=== PATIENT | female | born 1950 | race Caucasian/White ===

== ENCOUNTER → 2016-05-30 | Outpatient (CLI) | payer MEDICARE, OTHER ==
[2015-10-18 18:49] VITALS: BP 148/70
[~2016-05-30] MED LIST: HYDR-971 PO; HYDR12.58 PO; IRBE300T3 PO; LEVO500T38 PO; LOVA20TA2 PO; METF500T3 PO; METR500T PO; OXYC-323 PO
--- NOTE | 2016-05-30 13:43 | RAD ---
DATE: 05/30/16 EXAM: DIGITAL SCREEN BILAT W/CAD HISTORY: Routine screening COMPARISON: 01/02/15 This study was interpreted with the benefit of Computerized Aided Detection (CAD). TECHNIQUE: Routine CC and MLO views of both breasts are obtained. FINDINGS: The breast tissue density is [A ] . Almost fatty breast parenchyma. There are no dominant suspicious masses, suspicious microcalcifications or evidence of architectural distortion. Scattered benign-appearing calcifications are seen within both breasts. Skin and nipples are intact IMPRESSION: Benign findings BI-RADS CATEGORY: 2 BENIGN FINDING(S) RECOMMENDED FOLLOW-UP: 12M 12 MONTH FOLLOW-UP PQRS compliance statement: Patient information was entered into a reminder system with a target due date for the next mammogram. Mammography is a sensitive method for finding small breast cancers, but it does not detect them all and is not a substitute for careful clinical examination. A negative mammogram does not negate a clinically suspicious finding and should not result in delay in biopsying a clinically suspicious abnormality. "Our facility is accredited by the [employer] Mammography [employer]."
== END | disposition home or self-care (01) ==
LOC: MAMMO 12:02
PROVIDERS: ATTEND Physician Assistant Surgical
DX: Z12.31 Encounter for screening mammogram for malignant neoplasm of breast (principal)
CPT/HCPCS: G0202; 77067

== ENCOUNTER → 2017-04-10 | Outpatient (CLI) | payer MEDICARE, OTHER ==
[2017-04-10 13:34] LABS: GFR 62.8
[2017-04-10 13:34] LABS: CREATININE 0.9 mg/dL (0.6-1.0)
[2017-04-10] MEDS: GADOBUTROL 10 MMOL/10 ML VIAL IV (14:13)
== END | disposition home or self-care (01) ==
LOC: MRI 12:12
DX: G95.9 Disease of spinal cord, unspecified (principal); K44.9 Diaphragmatic hernia without obstruction or gangrene; D32.9 Benign neoplasm of meninges, unspecified; M50.321 Other cervical disc degeneration at C4-C5 level; M50.322 Other cervical disc degeneration at C5-C6 level; M50.323 Other cervical disc degeneration at C6-C7 level; M48.02 Spinal stenosis, cervical region; M48.04 Spinal stenosis, thoracic region
CPT/HCPCS: 36415; 72157; 82565; A9585

== ENCOUNTER → 2017-06-04 | Outpatient (CLI) | payer MEDICARE, OTHER | END | disposition home or self-care (01) | LOC: US 13:36 | DX: N18.2 Chronic kidney disease, stage 2 (mild) (principal) | CPT/HCPCS: 76770 ==

== ENCOUNTER → 2017-07-27 | Outpatient (CLI) | payer MEDICARE, OTHER | END | disposition home or self-care (01) | LOC: MAMMO 13:44 | DX: Z12.31 Encounter for screening mammogram for malignant neoplasm of breast (principal); I13.10 Hypertensive heart and chronic kidney disease without heart failure, with stage 1 through stage 4 chronic kidney disease, or unspecified chronic kidney disease; N18.2 Chronic kidney disease, stage 2 (mild); K21.9 Gastro-esophageal reflux disease without esophagitis; E78.5 Hyperlipidemia, unspecified; E11.9 Type 2 diabetes mellitus without complications | CPT/HCPCS: 77063; 77067 ==

== ENCOUNTER → 2018-04-07 | Outpatient (CLI) | payer MEDICARE, OTHER ==
[2018-02-05 10:41] VITALS: BP 186/86
[~2018-04-07] MED LIST changes: +HYDR-3164 PO; -HYDR-971 PO; -LEVO500T38 PO; +LEVO500T59 PO; -OXYC-323 PO; +OXYC1TAB15 PO; +TRAM50TA PO
[2018-04-07 14:06] LABS: ALBUMIN 3.3 g/dL (3.4-5.0); GFR 55.5; POTASSIUM 3.8 mmol/L (3.5-5.1)
[2018-04-08 03:22] LABS: CREAT RD UR 66.3 mg/dL (Not Estab.); MICRO CREAT RATIO 42.8 mg/g creat (0.0-30.0); MICROALB RD UR 28.4 ug/mL (Not Estab.)
== END | disposition home or self-care (01) ==
LOC: LAB 13:31
PROVIDERS: ATTEND Internal Medicine Nephrology
DX: I12.9 Hypertensive chronic kidney disease with stage 1 through stage 4 chronic kidney disease, or unspecified chronic kidney disease (principal); E11.22 Type 2 diabetes mellitus with diabetic chronic kidney disease; N18.2 Chronic kidney disease, stage 2 (mild)
CPT/HCPCS: 36415; 80069; 82043; 82570

== ENCOUNTER → 2018-10-05 | Outpatient (CLI) | payer MEDICARE, OTHER ==
[2018-02-05 10:41] VITALS: BP 186/86
--- NOTE | 2018-10-05 16:30 | RAD ---
DATE: 10/05/2018 EXAM: MAMMO DANIELA SCREENING BILATERAL HISTORY: Routine screening COMPARISON: 01/02/2015 05/30/2016, and 07/27/2017 mammographic exams This study was interpreted with the benefit of Computerized Aided Detection (CAD). Breast Density: FATTY The breast parenchyma is primarily fatty replaced. Breast parenchyma level density A. FINDINGS: Small right breast mass has remained stable. There is a new small left breast mass at the central retroareolar aspect measuring up to 0.6 cm diameter. No suspicious calcifications or distortion. IMPRESSION: New left breast mass. Ultrasound recommended. Spot compression imaging may be needed. BI-RADS CATEGORY: 0 INCOMPLETE: NEEDS ADDITIONAL IMAGING EVALUATION AND/OR PRIOR MAMMOGRAMS FOR COMPARISON. RECOMMENDED FOLLOW-UP: ADD ADDITIONAL IMAGING PQRS compliance statement: Patient information was entered into a reminder system with a target due date pending additional imaging for the next mammogram. Mammography is a sensitive method for finding small breast cancers, but it does not detect them all and is not a substitute for careful clinical examination. A negative mammogram does not negate a clinically suspicious finding and should not result in delay in biopsying a clinically suspicious abnormality. "Our facility is accredited by the [employer] Mammography [employer]."
== END | disposition home or self-care (01) ==
LOC: MAMMO 13:12
PROVIDERS: ATTEND Physician Assistant Surgical
DX: Z12.31 Encounter for screening mammogram for malignant neoplasm of breast (principal); N63.20 Unspecified lump in the left breast, unspecified quadrant; N63.10 Unspecified lump in the right breast, unspecified quadrant
CPT/HCPCS: 77063; 77067

== ENCOUNTER → 2018-10-20 | Outpatient (CLI) | payer MEDICARE, OTHER ==
[2018-02-05 10:41] VITALS: BP 186/86
--- NOTE | 2018-10-21 15:28 | RAD ---
EXAM: DIGITAL DIAGNOSTIC LT, BREAST LEFT HISTORY: further evaluation of a finding noted on her most recent screening mammographic examination. On that examination a mass was reported within the left breast COMPARISON: 10/05/2018, 07/27/2017 Bilateral CC and MLO views of the breasts were performed. Bilateral breast tomosynthesis was performed in CC and MLO projections. This study was interpreted with the benefit of Computerized Aided Detection (CAD). Breast Density: SCATTERED The breast parenchyma shows scattered fibroglandular densities. Breast parenchyma level B FINDINGS: Benign calcifications are present. The left breast mass is less conspicuous but still present on the spot compression views. Therefore ultrasound was performed. ULTRASOUND FINDINGS: Targeted ultrasound of the mammographic area of concern was performed. 6:00 position, 4 cm from the nipple: A hypoechoic mass of circumscribed margins and round/oval shape is present, measuring 0.5 x 0.4 x 0.2 cm. This demonstrates internal homogenous echogenicity with internal septations. IMPRESSION: Probably benign left breast mass is seen, for which short interval follow-up imaging is recommended to include ultrasound and mammogram. BI-RADS CATEGORY: 3 PROBABLY BENIGN FINDING(S)-SHORT INTERVAL FOLLOW-UP SUGGESTED RECOMMENDED FOLLOW-UP: 6M 6 MONTH FOLLOW-UP PQRS compliance statement: Patient information was entered into a reminder system with a target due date for the next mammogram. Mammography is a sensitive method for finding small breast cancers, but it does not detect them all and is not a substitute for careful clinical examination. A negative mammogram does not negate a clinically suspicious finding and should not result in delay in biopsying a clinically suspicious abnormality. "Our facility is accredited by the [employer] Mammography [employer]." MICHELLED
== END | disposition home or self-care (01) ==
LOC: MAMMO 10:29
PROVIDERS: ATTEND Physician Assistant Surgical
DX: N63.20 Unspecified lump in the left breast, unspecified quadrant (principal)
CPT/HCPCS: 76641; 77065

== ENCOUNTER → 2019-05-31 | Outpatient (CLI) | payer MEDICARE, OTHER ==
[2018-02-05 10:41] VITALS: BP 186/86
[~2019-05-31] MED LIST changes: +IRBE300T23 PO; -IRBE300T3 PO
--- NOTE | 2019-05-31 11:53 | RAD ---
Examination: Left digital diagnostic mammogram. INDICATION: 67-year-old woman presents for short-term follow-up probably benign findings in the left breast initially recalled from screening in September 2018. COMPARISON: Screening mammograms of October 05, 2018, May 30, 2016 and limited left breast ultrasound of October 20, 2018. TECHNIQUE: CC and MLO views of the left breast using 2-D and 3-D technique were obtained and reviewed with computer-aided detection. FINDINGS: The breast parenchyma is almost entirely fatty replaced. Previously noted mass in the subareolar left breast has since resolved and was likely a benign cyst. No dominant mass, suspicious calcification or architectural distortion. IMPRESSION: Negative left digital diagnostic mammogram. No evidence of malignancy. BI-RADS Category 1 Negative Recommend return to routine bilateral mammographic screening, next due in 4 months. Patient entered into reminder system with target due date for next mammogram BI-RADS 1 -- negative findings (within normal)
== END | disposition home or self-care (01) ==
LOC: MAMMO 09:57
PROVIDERS: ATTEND Family Medicine
DX: Z09 Encounter for follow-up examination after completed treatment for conditions other than malignant neoplasm (principal); R92.8 Other abnormal and inconclusive findings on diagnostic imaging of breast
CPT/HCPCS: 77065

== ENCOUNTER → 2019-08-31 | Outpatient (CLI) | payer MEDICARE, OTHER ==
[2018-02-05 10:41] VITALS: BP 186/86
--- NOTE | 2019-08-31 09:22 | RAD ---
LUMBAR SPINE WO CONTRAST History: Reason: LBP / Spl. Instructions: / History: Technique: Multiplanar, multi sequential MR imaging was performed of the lumbar spine. Comparison: None Findings: Minimal grade 1 anterolisthesis L4 on L5. Normal vertebral body height. No fracture. Degenerative endplate changes most prominent L1-L2. Degenerative increased disc signal at the L1-L2 level. Conus terminates at the normal location. No evidence of nerve root clumping. L1-L2: Small disc bulge. Mild facet arthropathy. No canal or neuroforaminal narrowing. L2-L3: Small disc bulge. Mild facet arthropathy. No canal narrowing. Mild bilateral neuroforaminal narrowing. L3-L4: Small disc bulge eccentric to the right. Moderate facet arthropathy. Subarticular recess narrowing. No canal narrowing. Mild to moderate left and mild right neuroforaminal narrowing. L4-L5: Anterolisthesis. Broad-based disc bulge. Severe right subarticular recess narrowing with abutment of the descending right L5 nerve root. Advanced right greater than left facet arthropathy. Bilateral facet joint effusions. Minimal canal narrowing. Moderate to severe right and mild left neuroforaminal narrowing. L5-S1: Disc bulge. Moderate facet arthropathy. No canal narrowing. Mild subarticular recess narrowing. Mild bilateral neuroforaminal narrowing. Impression: 1. Multilevel lumbar spondylosis most prominent L4-L5. 2. L4-L5 severe right subarticular recess narrowing with abutment of the descending right L5 nerve root. Correlate for radiculopathy. 3. Multilevel neuroforaminal narrowing most prominent right L4-L5. Electronically signed by: Ean Rayo DO (08/31/2019 9:19 AM) [facility]
== END | disposition home or self-care (01) ==
LOC: MRI 07:35
PROVIDERS: ATTEND Orthopaedic Surgery
DX: M47.26 Other spondylosis with radiculopathy, lumbar region (principal); M48.061 Spinal stenosis, lumbar region without neurogenic claudication; M12.88 Other specific arthropathies, not elsewhere classified, other specified site
CPT/HCPCS: 72148

== ENCOUNTER → 2019-10-24 | Outpatient (CLI) | payer MEDICARE, OTHER ==
[2018-02-05 10:41] VITALS: BP 186/86
[~2019-10-24] MED LIST changes: +IOHEXOL 180 MG/ML 10 ML VIAL. ONE; +LORA10CA PO; +OLME1TAB51 PO; +methylPREDNISolone ACETATE 40 MG/ML VIAL. ONE; +methylPREDNISolone ACETATE 80 MG/ML VIAL. ONE
--- NOTE | 2019-10-24 13:37 | PAIN ---
DATE OF SERVICE: 10/24/2019 INITIAL CONSULTATION FOR PAIN CLINIC CHIEF COMPLAINT: Low back and left lower extremity pain. HISTORY OF PRESENT ILLNESS: This is a 69-year-old female, who presents with history of pain in the low back, left lower extremity for many years, worse over the past 6 months or so with pain getting worse with walking, standing, change in positions, standing from a seated position and vice versa. The patient reports it does not awaken her from sleep at night, feels better with sitting or lying down, but it can affect her bowel or bladder control, but no incontinence. The patient reports she has been using a walker to ambulate and it affects her ability to walk significantly, which is when she has most of her pain. The patient has had physical therapy, which helped, chiropractic treatment as well as exercise in the past, but the physical therapy actually flared up the pain in the left leg to some extent. The patient has been taking tramadol 50 mg as recently as this morning, which does decrease the pain by about 50%. The patient rates her disability rating from 0-10, 10 being the worst, is a 10 with family and home responsibilities, recreation, social activity, sexual behavior, occupation, self-care and 0 with life support activities, such as sleeping. The patient did have an MRI scan of the lumbar spine, which shows multilevel lumbar spondylosis, most prominent at L4-L5 with severe right subarticular recess narrowing with abutment of the descending right L5 nerve root with multilevel neural foraminal narrowing, most prominent at right L4-L5. The patient reports no loss of motor function, but significant fatigability with ambulation in the low back and left lower extremity. 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 PREVIOUS SURGERY: Include partial hysterectomy, right oophorectomy in 2015, wisdom teeth extraction in 2017, cholecystectomy in 2009. CURRENT MEDICATIONS: Include tramadol, metformin, olmesartan and Claritin. ALLERGIES: THE PATIENT IS ALLERGIC TO ALENA INHIBITORS, WHICH CAUSES LOSS OF CONSCIOUSNESS. FAMILY HISTORY: Significant for no major medical problems or conditions she is aware of. SOCIAL HISTORY: The patient does not drink alcohol; does not smoke; does not use any illegal, illicit, or recreational drugs. She is , lives with her spouse. Has 2 children living at home and lives locally in [place], [place]. Reports she is currently retired. REVIEW OF SYSTEMS: The patient's review of systems is positive for those items mentioned in the history of present illness. All systems reviewed and otherwise negative. It is complete, full, and well documented on the patient's chart. PHYSICAL EXAMINATION: VITAL SIGNS: The patient's blood pressure is 150/83, pulse 69, respirations 16, temperature is 98.0 degrees Fahrenheit, height is 5 feet 2 inches, weight is 255 pounds. GENERAL: The patient is awake, alert, oriented, appropriate, has very pleasant demeanor. HEENT: Head shows normocephalic, atraumatic. Extraocular movements are intact and symmetrical. Oral cavity: Mucous membranes moist and pink. Dentition is intact. NECK: Shows anterior throat supple without palpable lymphadenopathy noted. Swallow reflex symmetrical. CHEST: Shows normal on inspection. Breath sounds are clear bilaterally. HEART: Shows S1, S2 clear. No murmurs auscultated. ABDOMEN: Soft, nontender, nondistended. BACK: Shows spine grossly in the midline. Normal-appearing thoracic kyphosis and some minor flattening of the lumbar lordotic curvature. Lumbar paraspinous muscle shows symmetrical on inspection, on palpation shows some moderate tenderness diffusely bilaterally and diffusely with throughout the upper, middle, and lower distribution of the paraspinous muscles bilaterally without asymmetry, without trigger points. No tenderness over the spinous processes, sacrum, or sacroiliac regions with deeper palpation. The patient has good rotational motion of the lumbar spine, both laterally greater than 10 degrees right and left as well as extension greater than 10 degrees, forward flexion to 45 degrees without significant increase in pain. EXTREMITIES: Lower extremities show deep tendon reflexes at 1+ in the patellar and tendo-calcaneus tendons. Motor exam is strong with 5/5 dorsiflexion, extension, quadriceps and hamstring flexion symmetrical. Peripheral pulses are 1+ posterior tibia and no peripheral edema bilaterally. Lower extremities are warm and dry to touch, equal in color and appearance. Straight leg raise noted to be negative for reproduction of radicular symptoms bilaterally. Gaenslen and Arash maneuvers are negative bilaterally as well. The patient is able to stand. She has difficulty rising from seated position, uses the arms of the chair to get up fairly significantly. She has a shuffling gait; does not appear to favor the right or left lower extremity significantly, but both legs are shuffling and she is using a walker to ambulate even on short distances and she has it with her today as well. SKIN: Shows warm and dry, good turgor. No edema. No sores, rashes, or bruising. IMPRESSION: 1. This is a 69-year-old female with long history of low back, bilateral lower extremity pain, worse currently on the left than the right. 2. MRI scan of lumbar spine as noted. 3. Arthritis. 4. Obesity. 5. Hypertension. 6. Type 2 diabetes. PLAN: Options were discussed with the patient, including conservative medical managements, physical therapies, and interventional techniques. She would like to pursue interventional techniques. We discussed a lumbar epidural steroid injection using description as well as anatomical models to describe the procedure. Risks were then discussed, including but not limited to bleeding, infection, possibility of epidural hematoma and subsequent neurological compromise, dural puncture, headaches, spinal cord, and/or nerve damage, side effects of steroid medication and poor results regarding pain control. The patient understands and wished to proceed. The patient will return to the clinic in approximately 2 weeks for followup. She was counseled on return appointment, activity level, and side effects to be aware of. DIAGNOSES: Lumbar radiculopathy with lumbar degenerative disk disease and lumbar spondylosis. PROCEDURE: Lumbar epidural steroid injection, translaminar approach at the L4-L5 level using C-arm fluoroscopic guidance under sterile prep and drape using local anesthetic. MEDICATION INJECTED: A total of 120 mg Depo-Medrol plus 5 mL of preservative-free normal saline and 2 mL of contrast. CONDITION AT DISCHARGE: Stable. The patient tolerated procedure well, had no complications. FLAVIO GAINES MD DR: APRYL/joan JOB#: [id number] / [id number] SHAVON Maciel MD
== END | disposition home or self-care (01) ==
LOC: PNCL 10:22
PROVIDERS: ATTEND Anesthesiology
DX: M51.16 Intervertebral disc disorders with radiculopathy, lumbar region (principal); E78.5 Hyperlipidemia, unspecified; M19.90 Unspecified osteoarthritis, unspecified site; M79.662 Pain in left lower leg; M47.896 Other spondylosis, lumbar region; I10 Essential (primary) hypertension; E11.9 Type 2 diabetes mellitus without complications; Z88.8 Allergy status to other drugs, medicaments and biological substances; Z90.710 Acquired absence of both cervix and uterus; Z90.49 Acquired absence of other specified parts of digestive tract; Z98.890 Other specified postprocedural states; Z79.899 Other long term (current) drug therapy
CPT/HCPCS: 62323; J1030; J1040; Q9965

== ENCOUNTER → 2019-11-07 | Outpatient (CLI) | payer MEDICARE, OTHER ==
[2018-02-05 10:41] VITALS: BP 186/86
[~2019-11-07] MED LIST changes: +ASPI325T8 PO
--- NOTE | 2019-11-07 10:42 | PDOC ---
Progress Note - Pain Clinic Date of Service: DOS: DATE: 11/07/19 TIME: 10:36 Diagnosis: Dx: Lumbar radiculopathy with lumbar degenerative disease and lumbar spondylosis History or Present Illness: HPI: 69-year-old female returns follow-up status post lumbar epidural steroid traction x1. Patient was about 75% improvement in the low back and left and right lower extremities. Patient reports pain is much less with increased activity greater ease and comfort walking greater distances during work household activities with greater ease and comfort try with greater ease in comfort. Patient reports her pain to 7 on scale 10 is worse of the past week for an average of 1 is least as of 1 today patient ports mainly in the left hip described as sharp and stabbing also tingling and aching across the low back into the posterior gluteus lateral thigh anterior thigh on the right and left lower extremities but mostly on the left side patient reports that she was doing a bit of extended standing while she doing some cooking over the weekend and this exacerbated her left leg as well. Patient ports no new motor or sensory deficits no new bowel or bladder incontinence or other complaints. Physical Exam: VS: 176/79 blood pressure's pulse is 66 respirations 18 temperature 98.3 F height 5foot 4 inches weight is 2 4 7 pounds. PE: PHYSICAL EXAMINATION: GENERAL: The patient is awake, alert, oriented, appropriate, very pleasant demeanor HEENT: Shows normocephalic, atraumatic. Extraocular movements are intact and symmetrical. Oral cavity: Mucous membranes moist and pink. Dentition is intact. NECK: Shows anterior throat supple without palpable lymphadenopathy noted. CHEST: Shows normal on inspection. Breath sounds are clear bilaterally no rales rhonchi or wheezes are auscultated.. HEART: Shows S1, S2 clear. No murmurs auscultated. ABDOMEN: Soft, nontender, nondistended. No palpable organomegaly is noted. No rebound or guarding demonstrated. BACK: Shows spine grossly in the midline. Normal-appearing cervical lordotic curvature. There is slightly increased thoracic kyphosis, some minor flattening of the lumbar lordotic curvature. Lumbar paraspinous muscles show symmetrical on inspection, on palpation shows some moderate tenderness diffusely throughout the upper, middle and lower distribution of the paraspinous muscles bilaterally and also into the lower thoracic paraspinous musculature, firm and tender, but without specific trigger points, without radiation of pain. The patient has good rotational motion of the lumbar spine, both laterally as well as extension and flexion without significant difficulty. No tenderness over the spinous processes, sacrum or sacroiliac regions. EXTREMITIES: Lower extremities show deep tendon reflexes 1+ in the patellar and tendo calcaneus tendons. Motor exam is 5 on a scale of 5 with right dorsiflexion, extension, quadriceps and hamstring flexion and 5/5 on the left. Peripheral pulses are 1+ posterior tibial. No peripheral edema is noted bilaterally. Lower extremities are warm and dry to touch, equal in color and appearance. The patient is able to stand and walk without significant assistance however does require assistance with getting up from a seated position.. SKIN: Shows warm and dry, good turgor. No edema. No sores, rashes or bruising throughout. Options were discussed with the patient. The patient's old chart was reviewed a nd current medication regimen updated. [] Procedure: Procedure: Options were discussed with the patient. Patient's old chart was reviewed as her current medication regimen updated current review of systems updated today a s well and we will proceed with a second in the series lumbar epidural straight injection today. Risks are discussed including but not limited to bleeding infection possibility of epidural hematoma subsequent neurological compromise dural puncture headache spinal cord and or nerve damage side effects of steroid medication/chronic pain control. Patient understands wish to proceed patient return to clinic in approximately 2 weeks for follow-up was counseled return appointment activity level and side effects to be aware. Medication Injected: Med Injected: Procedure is lumbar epidural steroid injection under local anesthetic using sterile prep and drape at the L4-5 level using C-arm fluoroscopic guidance in both AP and lateral views medications injected is 120 mg Depo-Medrol + 10 mL preservative-free normal saline and 2 mL Isovue for contrast- condition at discharge is stable patient tolerated procedure well had no complications. Condition at Discharge: Condition at Discharge: Condition at discharge stable patient have a procedure well had no complications. FLAVIO GAINES MD Nov 07, 2019 10:42
== END | disposition home or self-care (01) ==
LOC: PNCL 09:53
PROVIDERS: ATTEND Anesthesiology
DX: M51.16 Intervertebral disc disorders with radiculopathy, lumbar region (principal); M47.896 Other spondylosis, lumbar region; Z88.8 Allergy status to other drugs, medicaments and biological substances; Z79.82 Long term (current) use of aspirin; Z79.899 Other long term (current) drug therapy
CPT/HCPCS: 62323; J1030; J1040; Q9965

== ENCOUNTER → 2019-11-29 | Outpatient (CLI) | payer MEDICARE, OTHER ==
[2018-02-05 10:41] VITALS: BP 186/86
[~2019-11-29] MED LIST changes: +GADOTERATE 5 MMOL/10ML VIAL. IVP ONE; -IOHEXOL 180 MG/ML 10 ML VIAL. ONE; +IOHEXOL 300 MG/ML 50 ML VIAL. IJ ONE; -methylPREDNISolone ACETATE 40 MG/ML VIAL. ONE; -methylPREDNISolone ACETATE 80 MG/ML VIAL. ONE
--- NOTE | 2019-11-29 16:24 | RAD ---
EXAMINATION: MRI ARTHROGRAM LEFT HIP CLINICAL HISTORY: Left hip pain concerning for labral pathology TECHNIQUE: Routine hip MRI arthrogram protocol. Procedural portion of the arthrogram reported separately. COMPARISON: Left hip radiographs 10/31/2019 FINDINGS: Left Hip: Mild labral degeneration without discrete tear. No full-thickness chondral defect. No acute fracture. No avascular necrosis. Tendons: Within normal limits including the iliopsoas, hamstring, gluteal and rectus femoris tendons. Muscles: Within normal limits. Bones/Marrow: No acute fracture or suspicious marrow replacing lesion. Other: Mild thickening of the greater trochanteric bursa, compatible with bursitis. Incidentally noted sigmoid diverticulosis without evidence of acute diverticulitis. IMPRESSION: Mild degeneration of the left acetabular labrum without discrete tear. Electronically signed by: David Wilson DO (11/29/2019 4:21 PM) [id number]
--- NOTE | 2019-11-29 17:20 | RAD ---
EXAM: Fluoroscopically guided left hip injection for MR arthrography. HISTORY: 69-year-old woman with left hip pain. Intra-articular contrast requested for MR arthrography. TECHNIQUE: The risks and benefits of the procedure were discussed with the patient and written and verbal consent were obtained. A time out procedure was performed. Fluoroscopic imaging of the left hip was performed. The overlying skin was sterilely prepped and infiltrated with 1% lidocaine for local anesthesia. A 6-inch 22-gauge spinal needle was then advanced into the joint space from an anterior posterior approach under fluoroscopic guidance. Intra-articular positioning positioning was confirmed with a small injection of iodinated contrast. 12 mL of 1:200 dilution gadolinium contrast with saline and iodinated contrast was injected under fluoroscopic control. Instrumentation was withdrawn and a sterile dressing placed. There were no immediate complications. The patient was transferred to the MR suite for additional imaging. Fluoroscopy time 0.9 minutes. 4 images were obtained. Refer to the MR report for additional detail. IMPRESSION: Successful fluoroscopically guided left hip injection for MR arthrography. Please refer to the separate MR report for additional detail. Electronically signed by: Amanda Owens MD (11/29/2019 5:17 PM) [id number]
== END | disposition home or self-care (01) ==
LOC: RAD 13:11
PROVIDERS: ATTEND Neurological Surgery
DX: S73.192A Other sprain of left hip, initial encounter (principal); M16.12 Unilateral primary osteoarthritis, left hip; K57.30 Diverticulosis of large intestine without perforation or abscess without bleeding; X58.XXXA Exposure to other specified factors, initial encounter; Y93.89 Activity, other specified; Y92.89 Other specified places as the place of occurrence of the external cause; Y99.8 Other external cause status; Z88.8 Allergy status to other drugs, medicaments and biological substances; Z79.82 Long term (current) use of aspirin; Z79.899 Other long term (current) drug therapy
CPT/HCPCS: 27093; 73525; 73722

== ENCOUNTER → 2020-06-19 | Outpatient (CLI) | payer MEDICARE, OTHER ==
[2018-02-05 10:41] VITALS: BP 186/86
[~2020-06-19] MED LIST changes: -GADOTERATE 5 MMOL/10ML VIAL. IVP ONE; -IOHEXOL 300 MG/ML 50 ML VIAL. IJ ONE
--- NOTE | 2020-06-19 10:48 | RAD ---
MR LUMBAR SPINE WO -[id number] Date: 06/19/2020 8:03 AM Indication: lumbar radiculopathy, motor level spinal weakness Comparison: 08/31/2019. Technique: Multi-planar multi-weighted magnetic resonance imaging of the lumbar spine was performed w ithout intravenous contrast using the standard lumbar spine protocol. FINDINGS: Trace anterolisthesis at L4-5. No acute fracture. Multilevel degenerative disc desiccation and disc h eight loss, worst and moderate to severe at L1-2. Fatty degenerative endplate changes at L1-2. Trace degenerative endplate edema at L4-5. The conus terminates at a normal level. No abnormal signal is seen within the visualized distal spina l cord. No clumping of intrathecal nerve roots. No soft tissue abnormality in the visualized abdomen or pelvis. T12-L1: No disc bulge. No facet arthropathy. No significant spinal stenosis or neural foraminal narro wing. L1-L2: Disc bulge. Mild facet arthropathy. No significant spinal stenosis or neural foraminal narrowi ng. L2-L3: Disc bulge. Mild facet arthropathy. No significant spinal stenosis. Mild bilateral neural fora kierra narrowing. L3-L4: Disc bulge. Mild facet arthropathy. No significant spinal stenosis. Mild lateral recess narrow ing. Mild to moderate bilateral neural foraminal narrowing. L4-L5: Disc bulge with central/right paracentral superiorly migrating extrusion which extends 10 mm a shanti the disc space, previously 6 mm extension. Severe narrowing of the right lateral recess with abu tment of the descending right L5 nerve root. Mild spinal canal stenosis and left lateral recess narro wing. Moderate to severe right and mild left neural foraminal narrowing. Severe facet arthropathy wit h bilateral joint effusion. L5-S1: Disc bulge with right far lateral protrusion which abuts the exiting right L5 nerve root. Mild facet arthropathy. No spinal stenosis. Mild lateral recess narrowing. Mild neural foraminal narrowin g. IMPRESSION: Lumbar spondylosis, worst at L4-5. Disc extrusion at L4-5 is slightly larger than the prior exam, wit h persistent severe narrowing of the right lateral recess and moderate to severe narrowing of the rig ht neural foramen. Electronically signed by: Orlando Narvaez MD (06/19/2020 10:46 AM) [id number]
== END ==
LOC: MRI 09:44
PROVIDERS: ATTEND Physician Assistant
DX: M47.27 Other spondylosis with radiculopathy, lumbosacral region (principal); M48.07 Spinal stenosis, lumbosacral region
CPT/HCPCS: 72148